=== PATIENT | male | born 1995 ===

== ENCOUNTER 2017-05-29 06:32 | Emergency (ER) | payer SELFPAY | END 2017-05-29 07:51 | disposition home or self-care (01) | LOC: CED 06:32 | DX: R41.82 Altered mental status, unspecified (principal); S40.212A Abrasion of left shoulder, initial encounter; F17.200 Nicotine dependence, unspecified, uncomplicated; X58.XXXA Exposure to other specified factors, initial encounter | CPT/HCPCS: 99285 ==